=== PATIENT | female | born 1985 | race African-American/Black ===

== ENCOUNTER 2018-04-02 18:44 | Observation (INO) | payer OTHER ==
[~2018-04-02] VITALS: Ht 172.7 cm; Wt 85.7 kg
[~2018-04-02 18:44] MED LIST: PREN-96 PO
[2018-04-02] MEDS ORDERED: ONDA4TAB5 PO (19:32)
[2018-04-02 20:24] LABS: Urine Amorphous Crystal FEW /hpf (None Seen); Urine Bacteria NONE SEEN /hpf (None Seen); Urine Blood Negative /uL (Negative); Urine Mucus FEW (None Seen); Urine Specific Gravity 1.021 (1.001-1.035); Urine WBC 2 /hpf (0 - 5)
[2018-04-02 20:25] LABS: Alcohol, Urine < 3.0 mg/dL (0-5); Amphetamine Screen, Urine NEGATIVE (NEGATIVE); Barbiturate Scree,Urine NEGATIVE (NEGATIVE); Benzodiazephine Screen, Urine NEGATIVE (NEGATIVE); Cannabinoid Screen, Urine NEGATIVE (NEGATIVE); Cocaine Screen, Urine NEGATIVE (NEGATIVE); Opiate Scree,Urine NEGATIVE (NEGATIVE); Phencyclidine Screen, Urine NEGATIVE (NEGATIVE)
== END 2018-04-02 20:05 | disposition home or self-care (01) | DRG 566 ==
LOC: LDRP 18:44
PROVIDERS: ADMIT Specialist; ATTEND Specialist
DX: O62.9 Abnormality of forces of labor, unspecified (principal); O26.893 Other specified pregnancy related conditions, third trimester; R10.9 Unspecified abdominal pain; R10.2 Pelvic and perineal pain; Z3A.39 39 weeks gestation of pregnancy
CPT/HCPCS: 59025; 80307; 81001; 81002; G0378

== ENCOUNTER 2019-01-23 05:59 | Emergency (ER) | payer OTHER ==
[~2019-01-23] VITALS: Ht 172.7 cm; Wt 86.2 kg
[~2019-01-23 05:59] MED LIST changes: +ONDA4TAB5 PO
[2019-01-23 07:42] LABS: Basophils # (auto) 0 uL; Basophils % (auto) 0.3 % (0.0-2.0); Eosinophils # (auto) 0 uL; Eosinophils % (auto) 0.1 % (0.0-7.0); Hematocrit 51.4 % (36.0-46.0); Hemoglobin 17.1 g/dL (12.2-16.2); Lymphocytes # (auto) 1.9 uL; Lymphocytes % (auto) 22.5 % (10.0-50.0); Mean Corpuscular Hemoglobin 29.1 pg (28.0-32.0); Mean Corpuscular Hgb Conc. 33.2 g/dL (32.0-36.0); Mean Corpuscular Volume 87.8 fL (80.0-100.0); Monocytes # (auto) 0.7 uL; Monocytes % (auto) 8.1 % (0.0-12.0); Neutrophils # (auto) 5.9 uL; Nucleated Red Blood Cells % 0.1 %; Platelet Count (auto) 213 10^3/uL (140-450); Red Blood Cells 5.86 10^6/uL (4.0-5.20); Red Cell Distribution Width 14.9 % (11.8-14.3); White Blood Cell 8.6 10^3/uL (4.4-10.8)
[2019-01-23] MEDS ORDERED: SODIUM CHLORIDE 0.9% 1,000 ML IV ONE ×2 (07:44)
[2019-01-23 08:25] LABS: Albumin 4.2 g/dL (3.4-5.0); BUN/Creatinine Ratio 16.5; Calcium 9.6 mg/dL (8.5-10.1); Magnesium 2.7 mg/dL (1.6-2.6); Potassium 3.6 mmol/L (3.5-5.1)
[2019-01-23 08:28] LABS: Bilirubin, Total 0.7 mg/dL (0.2-1.0); Total Protein 8.4 g/dL (6.4-8.2)
[2019-01-23] MEDS ORDERED: MORPHINE SULFATE 4 MG/ML SYR/VIAL IV ONE (08:30)
[2019-01-23] MEDS ORDERED: ONDANSETRON HCL 4 MG/2 ML VIAL IV ONE (08:30)
[2019-01-23 09:34] LABS: Urine Bacteria NONE SEEN /hpf (None Seen); Urine Blood 1+ /uL (Negative); Urine Mucus FEW (None Seen); Urine Specific Gravity 1.028 (1.001-1.035); Urine WBC 5 /hpf (0 - 5)
[2019-01-23] MEDS ORDERED: HYDROcodone-ACET 5/325MG TAB PO ONE (13:45)
[2019-01-23 14:33] VITALS: BP 120/81
== END 2019-01-23 14:34 | disposition home or self-care (01) ==
LOC: ER 06:03
DX: N83.201 Unspecified ovarian cyst, right side (principal); R11.2 Nausea with vomiting, unspecified; Z88.1 Allergy status to other antibiotic agents; Z88.0 Allergy status to penicillin; Z91.018 Allergy to other foods; Z79.899 Other long term (current) drug therapy; Z87.442 Personal history of urinary calculi
CPT/HCPCS: 36415; 74176; 76830; 76856; 80053; 81001; 81025; 83735; 85025; 96361; 96374; 96375; 99284; J2270; J2405; J7030

== ENCOUNTER 2019-03-09 01:20 | Emergency (ER) | payer SELFPAY ==
[~2019-03-09] VITALS: Ht 172.7 cm; Wt 81.6 kg
[~2019-03-09 01:20] MED LIST changes: +ONDA-144 PO; -ONDA4TAB5 PO
[2019-03-09 01:35] VITALS: BP 118/68
== END 2019-03-09 03:17 | disposition left against medical advice (07) ==
LOC: EDBD 01:20 → ER 01:25
DX: R11.2 Nausea with vomiting, unspecified (principal); Z53.21 Procedure and treatment not carried out due to patient leaving prior to being seen by health care provider

== ENCOUNTER 2020-07-16 21:39 | Observation (INO) | payer MEDICAID ==
[~2020-07-16] VITALS: Ht 170.2 cm; Wt 88.0 kg
[2020-07-16] MEDS ORDERED: ONDANSETRON HCL 4 MG/2 ML VIAL IV ONE (22:30)
[2020-07-16] MEDS ORDERED: LACTATED RINGER'S 1,000 ML IV ONE (22:30)
[2020-07-16] MEDS ORDERED: ACETAMINOPHEN 325 MG TAB PO ONE (22:45)
[2020-07-16 23:33] LABS: Urine Bacteria NONE SEEN /hpf (None Seen); Urine Blood 1+ /uL (Negative); Urine Mucus FEW (None Seen); Urine Specific Gravity 1.032 (1.001-1.035); Urine WBC 6 /hpf (0 - 5)
[2020-07-16 23:56] LABS: Alcohol, Urine < 3.0 mg/dL (0-10); Amphetamine Screen, Urine NEGATIVE (NEGATIVE); Barbiturate Scree,Urine NEGATIVE (NEGATIVE); Cannabinoid Screen, Urine POSITIVE (NEGATIVE); Cocaine Screen, Urine NEGATIVE (NEGATIVE); Phencyclidine Screen, Urine NEGATIVE (NEGATIVE)
[2020-07-17] MEDS ORDERED: ACETAMINOPHEN 325 MG TAB PO ONE
[2020-07-17 00:03] LABS: Benzodiazephine Screen, Urine NEGATIVE (NEGATIVE); Opiate Scree,Urine NEGATIVE (NEGATIVE)
== END 2020-07-17 00:45 | disposition home or self-care (01) ==
LOC: LDRP 21:39
PROVIDERS: ADMIT Obstetrics & Gynecology; ATTEND Obstetrics & Gynecology
DX: O21.2 Late vomiting of pregnancy (principal); Z20.828 Contact with and (suspected) exposure to other viral communicable diseases; O26.892 Other specified pregnancy related conditions, second trimester; R10.9 Unspecified abdominal pain; Z3A.21 21 weeks gestation of pregnancy
CPT/HCPCS: 36415; 59025; 76705; 76805; 80307; 81001; 81002; 87426; 94760; 96361; 96374; G0378; J2405; U0003; 96360